=== PATIENT | male | born 1945 | race Caucasian/White ===

== ENCOUNTER 2025-01-31 10:57 | Emergency (ER) | payer MEDICARE ==
[~2025-01-31 10:57] MED LIST: Iopamidol 370 76% 100 ML VIAL ONE
[2025-01-31 11:15] LABS: #Basophils 0.1 thou/uL (0.0-0.2); #Eosinophils 0.2 thou/uL (0.0-0.7); #Lymphocytes 1.7 thou/uL (1.20-3.40); #Monocytes 0.8 thou/uL (0.11-0.59); #Neutrophils 3.9 thou/uL (1.40-6.50); %Basophils 1.2 % (0.0-1.0); %Eosinophils 2.8 % (0.0-10.0); %Lymphocytes 25.5 % (21.0-51.0); %Monocytes 11.3 % (0.0-10.0); %Neutrophils 59.2 % (42.0-75.0); Hematocrit 47.4 % (42.0-52.0); Hemoglobin 15.0 g/dL (14.0-18.0); Mean Corpuscular Hemoglobin 29.6 pg (27.0-31.0); Mean Corpuscular Volume 93.6 fl (78.0-98.0); Platelet Count 187 10x3/uL (130-400); Red Blood Cell (RBC) Count 5.06 mill/uL (4.70-6.10); White Blood Cell (WBC) Count 6.6 10x3/uL (4.8-10.8)
[2025-01-31 11:27] LABS: INR-International Normal Ratio 1.1; Prothrombin Time 14.0 sec (12.0-14.7)
[2025-01-31 11:28] LABS: PTT 28.8 sec (22.9-36.1)
[2025-01-31 11:35] LABS: ALT (SGPT) 16 U/L (Less than 45); AST (SGOT) 23 U/L (11-34); Albumin 3.8 g/dL (3.1-4.5); Alkaline Phosphatase 100 U/L (40-110); Anion Gap 15 mmol/L (10-20); BUN (Urea Nitrogen) 17 mg/dL (8.4-25.7); Bilirubin, Total 0.6 mg/dL (0.3-1.2); Calc. Creatinine Clearance 0 mL/min (70-130); Calcium 8.7 mg/dL (7.8-10.44); Carbon Dioxide 25 mmol/L (23-31); Chloride 105 mmol/L (98-107); Globulin 2.6 g/dL (2.4-3.5); Glucose 73 mg/dL (83-110); Potassium 4.1 mmol/L (3.5-5.1); Sodium 141 mmol/L (136-145)
[2025-01-31 11:36] LABS: Troponin I Less than 0.010 ng/mL (< 0.028)
[2025-01-31] MEDS ORDERED: Aspirin Chewable 81 MG TAB ONE (11:54)
== END 2025-01-31 22:54 | disposition short-term general hospital (02) ==
LOC: MADERS 10:57
DX: G45.9 Transient cerebral ischemic attack, unspecified (principal); K21.9 Gastro-esophageal reflux disease without esophagitis; R29.701 NIHSS score 1
CPT/HCPCS: 70450; 70496; 70498; 80053; 82962; 84484; 85025; 85610; 85730; 93005; 94760; J7030; 36416; Q9967